=== PATIENT | female | born 1990 | race Two or more races ===

== ENCOUNTER 2020-04-15 21:40 | Emergency (ER) | payer OTHER ==
[~2020-04-15] VITALS: Ht 154.9 cm; Wt 49.4 kg
[2020-04-15 22:04] VITALS: BP 125/73
--- NOTE | 2020-04-15 22:10 | Emergency Room Report ---
History of Present Illness General Chief Complaint: Toothache Source: Patient Present Illness HPI Disclaimer: Please note that this report is being documented using [employer] technology. This can lead to erroneous entry secondary to incorrect interpretation by the dictating instrument. HPI: 29-year-old otherwise healthy female presents for evaluation of dental pain. Patient denies recent trauma started noted aching in the lower jaw yesterday. She states she chews a lot of ice but otherwise denies any sort of trauma. Follows regularly with dentistry. Denies recent fever or chills. Worsening pain throughout the day. Applied topical pain relieving medications. Cannot take NSAIDs due to rash reaction. Has an appointment to see her dentist tomorrow. 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 EOMI. there is a small linear crack over tooth #24 and tenderness over the gumline with mild swelling. No obvious breakdown or ulcerations. No signs of oral trauma otherwise. No malocclusion. No TMJ tenderness. Resp: Normal work of breathing Skin: Intact. No abrasions, laceration or rash over the exposed skin MSK: Normal tone and bulk. Moving all extremities. No obvious deformity. Neuro: Awake and alert. Mentating appropriately Medical Decision Making Diagnostic Impression: Primary Impression: Toothache ER Course This 29-year-old female presenting for evaluation of 1 day worsening atraumatic tooth pain. There is a fracture on tooth #24 concerning for possible deeper infection such as variable abscess. Will start antibiotics prophylactically. Patient will be treated with pain medication. She will follow-up with her dentist tomorrow. Instructed to return with new or worsening symptoms. Last Vital Signs Date Time Temp Pulse Resp B/P (MAP) Pulse Ox O2 Delivery O2 Flow Rate FiO2 04/15/20 22:04 98.1 72 18 125/73 99 Room Air Disposition: HOME, SELF-CARE Condition: Stable Scripts Hydrocodone Bit/Acetaminophen 5-325* (NORCO 5-325 TABLET*) 1 Each Tablet 1 TAB ORAL Q6H PRN for FOR PAIN, #6 TAB 0 Refills Prov: Brian Duran MD 04/15/20 Amoxicillin/Potassium Clav 875-125* (AUGMENTIN 875-125 TABLET*) 1 Each Tablet 1 TAB ORAL TWICE A DAY for 7 Days, #14 TAB Prov: Brian Duarn MD 04/15/20 Patient Instructions: Dental Pain Additional Instructions: You will be started on antibiotics prophylactically for possible periapical abscess. Follow-up with your dentist at your scheduled appointment for tomorrow. Use the pain medication as prescribed. Return to the emergency depar tment new or worsening symptoms. Brian Duran MD Apr 15, 2020 22:10
[2020-04-15] MEDS ORDERED: AUGMENTIN 875-1 EAC1 ORAL (22:13)
[2020-04-15] MEDS ORDERED: NORCO 5-325 TA1 EAC1 ORAL (22:13)
[2020-04-15] MEDS ORDERED: Augmentin 875mg Tab ORAL ONE (22:15)
[2020-04-15] MEDS ORDERED: HYDROcodone/Acetamin 7.5/325 tab ORAL ONE (22:15)
[2020-04-15 22:19] VITALS: BP 127/84
== END 2020-04-15 22:46 | disposition home or self-care (01) ==
LOC: EMR 22:10
DX: K08.89 Other specified disorders of teeth and supporting structures (principal); Z88.6 Allergy status to analgesic agent; S02.5XXA Fracture of tooth (traumatic), initial encounter for closed fracture; X58.XXXA Exposure to other specified factors, initial encounter; Y92.9 Unspecified place or not applicable
CPT/HCPCS: 99282